=== PATIENT | female | born 1995 | race Caucasian/White ===

== ENCOUNTER 2016-09-20 19:42 | Emergency (ER) | payer BC ==
[~2016-09-20] VITALS: Ht 162.6 cm; Wt 71.0 kg
[2016-09-20] MEDS ORDERED: BACITRACIN ZINC OINT UDPKT TOP ONE (22:00)
[2016-09-20] MEDS ORDERED: TETANUS, DIPHTHERIA, PERTUSSIS VAC/PF 0.5ML (>7YR OLD) IM ONE (22:00)
[2016-09-20] MEDS ORDERED: ACETAMINOPHEN 500MG TABLET PO ONE (22:00)
[2016-09-20 23:37] VITALS: BP 132/92
[2016-09-22 17:10] LABS: CHLAMYDIA TRACHOMATIS NAA Negative (Negative); NEISSERIA GONORRHOEAE NAA Negative (Negative)
== END 2016-09-20 23:45 | disposition home or self-care (01) ==
LOC: ER 19:45
DX: S10.83XA Contusion of other specified part of neck, initial encounter (principal); M54.2 Cervicalgia; T74.21XA Adult sexual abuse, confirmed, initial encounter; Y04.1XXA Assault by human bite, initial encounter; T14.8 Other injury of unspecified body region; Z20.2 Contact with and (suspected) exposure to infections with a predominantly sexual mode of transmission; Y07.59 Other non-family member, perpetrator of maltreatment and neglect; Y93.89 Activity, other specified; Y92.9 Unspecified place or not applicable; E86.0 Dehydration; R42 Dizziness and giddiness; F70 Mild intellectual disabilities; E06.3 Autoimmune thyroiditis; Z98.890 Other specified postprocedural states
CPT/HCPCS: 81025; 87491; 87591; 90471; 90715; 99284